=== PATIENT | male | born 1980 | race Caucasian/White ===

== ENCOUNTER 2023-03-15 01:19 | Emergency (ER) | payer SELFPAY ==
[~2023-03-15] VITALS: Ht 182.9 cm; Wt 70.3 kg
[2023-03-15] MEDS ORDERED: SULFAMETH/TRIMETH 800/160 MG TABLET ONE (01:42)
[2023-03-15] MEDS ORDERED: CEFTRIAXONE 1 G VIAL ONE (01:42)
[2023-03-15] MEDS ORDERED: SULFAMETH/TRIMETH 800/160 MG TABLET PO ONE (01:45)
[2023-03-15] MEDS ORDERED: CEFTRIAXONE 1 G VIAL IM ONE (01:45)
[2023-03-15 01:55] LABS: BASOPHILS # (AUTO) 0.1 K/UL (0.0-0.2); BASOPHILS % (AUTO) 0.9 % (0.0-2.0); EOSINOPHILS # (AUTO) 0.2 K/uL (0.0-0.7); EOSINOPHILS % (AUTO) 3.7 % (0.0-7.0); HEMATOCRIT 37.5 % (36.7-47.1); HEMOGLOBIN 12.5 g/dL (12.5-16.3); LYMPHOCYTES # (AUTO) 1.9 K/uL (0.8-4.8); LYMPHOCYTES % (AUTO) 31.4 % (20.5-51.5); MEAN CORPUSCULAR HEMOGLOBIN 31.9 uug (23.8-33.4); MEAN CORPUSCULAR HGB CONC 33 g/dL (32.5-36.3); MEAN CORPUSCULAR VOLUME 95.9 fL (73.0-96.2); MONOCYTES # (AUTO) 0.5 K/uL (0.1-1.30); NEUTROPHILS # (AUTO) 3.3 K/uL (1.8-8.9); PLATELET COUNT (AUTO) 220 K/uL (152-348); RED BLOOD CELL COUNT(AUTO) 3.91 MIL/uL (4.06-5.63); RED CELL DISTRIBUTION WIDTH 13.5 % (12.1-16.2)
[2023-03-15] MEDS ORDERED: CEPH500T PO (01:56)
[2023-03-15] MEDS ORDERED: SULF1TAB48 PO (01:56)
[2023-03-15 02:09] LABS: DIFFERENTIAL COMMENT 1
[2023-03-15 02:11] LABS: CALCIUM 8.5 mg/dL (8.5-10.1); CREATININE 1.5 mg/dL (0.6-1.3); POTASSIUM 3.9 mmol/L (3.5-5.1)
[2023-03-15 02:17] LABS: ALBUMIN 3.9 g/dL (3.4-5.0); BILIRUBIN,TOTAL 0.4 mg/dL (0.2-1.0); TOTAL PROTEIN, SERUM 7.3 g/dL (6.4-8.2)
[2023-03-15 02:28] VITALS: BP 137/75; TEMP 97.9; O2SAT 97
== END 2023-03-15 02:29 | disposition home or self-care (01) ==
LOC: ER 01:19
DX: S30.861A Insect bite (nonvenomous) of abdominal wall, initial encounter (principal); R21 Rash and other nonspecific skin eruption; L08.9 Local infection of the skin and subcutaneous tissue, unspecified; Z79.899 Other long term (current) drug therapy; W57.XXXA Bitten or stung by nonvenomous insect and other nonvenomous arthropods, initial encounter; Y93.89 Activity, other specified; Y92.89 Other specified places as the place of occurrence of the external cause; Y99.8 Other external cause status
CPT/HCPCS: 99283; 80053; 85025; 36415; 96372; J0696; A4663